=== PATIENT | male | born 1975 ===

== ENCOUNTER 2017-06-26 12:39 | Emergency (ER) | payer MEDICAID, OTHER ==
[2017-06-26 12:52] VITALS: BP 123/78; RESP 18; O2SAT 95
[2017-06-26] MEDS ORDERED: Dexamethasone 4 mg/1 ml IM STA (13:12)
[2017-06-26] MEDS ORDERED: Dexamethasone 4 mg/1 ml ONE (13:20)
--- NOTE | 2017-06-26 13:29 | C.PDOC ---
History Of Present Illness 41 y/o male presents to the ED with complaints of sore throat x4 days, right ear pain and fever x2 days. Pt took tylenol without relief. He states pain is worsening and has pain with swallowing. Denies cough, abdominal pain, rash or any other complaints. Time Seen by Provider: 06/26/17 13:04 Chief Complaint (Nursing): ENT Problem History Per: Patient Onset/Duration Of Symptoms: Days Current Symptoms Are (Timing): Worse Symptoms Have Been: Continuous Severity: Moderate Anticoagulant/Antiplatlet Use?: No Past Medical History Reviewed: Historical Data, Nursing Documentation, Vital Signs Vital Signs: Last Vital Signs Temp 98.5 F 06/26/17 14:10 Pulse 77 06/26/17 14:10 Resp 18 06/26/17 12:52 BP 123/78 06/26/17 12:52 Pulse Ox 95 06/26/17 13:48 - Medical History PMH: Anxiety, Back Problems Surgical History: Appendectomy - [facility] Procedures INJECT/INFUSE NEC (10/13/03) OTHER SKIN & SUBQ I D (05/22/14) Family History: States: Unknown Family Hx - Social History Hx Tobacco Use: No Hx Alcohol Use: Yes Hx Substance Use: No - Immunization History Hx Tetanus Toxoid Vaccination: No Hx Influenza Vaccination: No Hx Pneumococcal Vaccination: No Review Of Systems Constitutional: Positive for: Fever Eyes: Positive for: Pain (right) ENT: Positive for: Throat Pain Respiratory: Negative for: Cough, Shortness of Breath Gastrointestinal: Negative for: Abdominal Pain Skin: Negative for: Rash Neurological: Negative for: Weakness, Numbness, Headache, Dizziness Physical Exam - Physical Exam Appears: Non-toxic, No Acute Distress Skin: Warm, Dry, No Rash Head: Atraumatic, Normacephalic Eye(s): bilateral: Normal Inspection Ear(s): Bilateral: Normal Nose: Normal Oral Mucosa: Moist Throat: Erythema (pharyngeal and tonsillar erythema), Exudate (bilateral tonsillar), No Drooling, No Mass, Other (uvula midline) Neck: Normal, Normal ROM, Supple Lymphatic: No Adenopathy Chest: Symmetrical Cardiovascular: Rhythm Regular, No Murmur Respiratory: Normal Breath Sounds, No Rales, No Rhonchi, No Wheezing Extremity: Bilateral: Atraumatic, Normal ROM Neurological/Psych: Oriented x3, Normal Speech Gait: Steady ED Course And Treatment O2 Sat by Pulse Oximetry: 95 (room air) Pulse Ox Interpretation: Normal Medical Decision Making Medical Decision Makin41 year old male with throat pain for 4days. Clinical exam consistent with strep pharyngitis, centor score of 3. will treat with Penicillin VK and steroid. Patient remained afebrile in no acute distress. No intraoral swelling and no signs of abscess. Advise NSAID for any pain or fever and to follow up with PCP. Disposition Counseled Patient/Family Regarding: Diagnosis, Need For Followup, Rx Given - Disposition Disposition: HOME/ ROUTINE Disposition Time: 13:28 Condition: STABLE Additional Instructions: You were treated for Strep throat with Decadron and Penicillin Continue to take antibiotic twice a day for 10 days Take Tylenol or Motrin alternating every 4-6 hours for Fever 100.4F or higher. Rest and drink plenty of fluids to prevent dryhdration. Try vanilla ice cream to improve eating/drinking, this is cold soothing and tastes good. May also try lozenges or cepacol spary over the counter. Prescriptions: Penicillin VK [Pen-Vee K] 1 tab PO BID #20 tab Instructions: Pharyngitis (ED) Forms: [employer] (Khmer) - POA Present On Arrival: None - Clinical Impression Clinical Impression: Strep pharyngitis - PA / CUSTOM DESIGNER / Resident Statement MD/DO has reviewed & agrees with the documentation as recorded. - Scribe Statement The provider has reviewed the documentation as recorded by the Zoibsol Holt All medical record entries made by the Albert were at my direction and personally dictated by me. I have reviewed the chart and agree that the record accurately reflects my personal performance of the history, physical exam, medical decision making, and the department course for this patient. I have also personally directed, reviewed, and agree with the discharge instructions and disposition.
[2017-06-26 14:11] VITALS: PULSE 77; TEMP 98.5
== END 2017-06-26 14:11 | disposition home or self-care (01) ==
LOC: C.ER 12:39
DX: J02.0 Streptococcal pharyngitis (principal)
CPT/HCPCS: 96372; 99283; J1100